=== PATIENT | female | born 1955 | race Two or more races ===

== ENCOUNTER 2021-02-02 07:04 | Outpatient (CLI) | payer OTHER | END 2021-02-02 07:07 | disposition home or self-care (01) | LOC: LAB 07:04 | PROVIDERS: ATTEND Internal Medicine | DX: I10 Essential (primary) hypertension (principal); I70.0 Atherosclerosis of aorta; K80.80 Other cholelithiasis without obstruction; R91.1 Solitary pulmonary nodule ==

== ENCOUNTER 2021-02-08 07:30 | Inpatient (IN) | payer OTHER ==
[2021-02-08] MEDS ORDERED: HYZAAR 100-251 EACH (15:28)
[2021-02-10] MEDS ORDERED: PANTOPRAZOLE SO40 MG (14:10)
[2021-02-10] MEDS ORDERED: NAPROXEN500 MG (14:10)
[2021-02-10] MEDS ORDERED: TOLTERODINE TART4 MG (14:10)
[2021-02-10] MEDS ORDERED: ALENDRONATE SOD70 MG (14:10)
== END 2021-02-10 20:30 | disposition home or self-care (01) | DRG 419 ==
LOC: O/R 02-10 06:40 → SURH 02-10 07:30 → O/R 02-10 20:30
PROVIDERS: ADMIT Specialist; ATTEND Specialist
PROC: BF532Z0 Other Imaging of Gallbladder and Bile Ducts using Fluorescing Agent, Intraoperative (ICD-10-PCS; 2021-02-10)
PROC: 0FT44ZZ Resection of Gallbladder, Percutaneous Endoscopic Approach (ICD-10-PCS; principal; 2021-02-10 09:45)
DX: K80.10 Calculus of gallbladder with chronic cholecystitis without obstruction (principal)

== ENCOUNTER 2021-02-18 11:18 | Outpatient (CLI) | payer OTHER ==
[~2021-02-18 11:18] MED LIST: ALENDRONATE SOD70 MG; HYZAAR 100-251 EACH; NAPROXEN500 MG; PANTOPRAZOLE SO40 MG; TOLTERODINE TART4 MG
== END 2021-02-18 11:28 | disposition home or self-care (01) ==
LOC: LAB 11:18
PROVIDERS: ATTEND Specialist
DX: R10.84 Generalized abdominal pain (principal)

== ENCOUNTER 2021-11-20 09:20 | Emergency (ER) | payer OTHER ==
[~2021-11-20] VITALS: Ht 167.6 cm; Wt 95.3 kg
== END 2021-11-20 12:31 | disposition home or self-care (01) ==
LOC: ER 09:20
DX: K46.9 Unspecified abdominal hernia without obstruction or gangrene (principal); N20.0 Calculus of kidney; K57.30 Diverticulosis of large intestine without perforation or abscess without bleeding; I10 Essential (primary) hypertension

== ENCOUNTER 2022-09-10 09:34 | Emergency (ER) | payer OTHER ==
[~2022-09-10] VITALS: Ht 172.7 cm; Wt 108.9 kg
== END 2022-09-10 13:52 | disposition home or self-care (01) ==
LOC: ER 09:34
DX: M54.59 Other low back pain (principal)

== ENCOUNTER 2023-12-24 10:57 | Outpatient (CLI) | payer OTHER | END 2023-12-24 11:03 | disposition home or self-care (01) | LOC: SONOGRAMA 10:57 | PROVIDERS: ATTEND Pathology Anatomic Pathology & Clinical Pathology | DX: D34 Benign neoplasm of thyroid gland (principal); E07.89 Other specified disorders of thyroid; E04.1 Nontoxic single thyroid nodule ==

== ENCOUNTER → 2024-06-30 | Emergency (ER) | payer OTHER ==
[~2024-06-30] VITALS: Ht 167.6 cm; Wt 104.3 kg
[~2024-06-30] MED LIST changes: +KETOROLAC TROMETHAMINE 60 MG VIAL IM ONE; +ORPHENADRINE CITRATE 30 MG/ML AMPUL IM ONE; +ORPHENADRINE CITRATE 30 MG/ML AMPUL ONE
== END | disposition home or self-care (01) ==
LOC: ER 08:19
DX: M54.9 Dorsalgia, unspecified (principal); Z88.8 Allergy status to other drugs, medicaments and biological substances; I10 Essential (primary) hypertension